=== PATIENT | female | born 1985 | race Caucasian/White ===

== ENCOUNTER 2017-07-25 15:38 | Emergency (ER) | payer OTHER ==
[2017-07-25 15:55] VITALS: TEMP 98.3
--- NOTE | 2017-07-25 16:12 | ED PDOC ---
Arrival/HPI <Kyle Stephens - Last Filed: 07/25/17 18:17> - History of Present Illness Time/Duration: Prior to Arrival Symptom Onset: Sudden Symptom Course: Unchanged Context: Home <Luiz Garcia - Last Filed: 07/25/17 18:26> - General Chief Complaint: Upper Extremity Problem/Injury Time Seen by Provider: 07/25/17 15:39 - History of Present Illness Narrative History of Present Illness (Text): 07/25/17 16:10 31yo F presenting with R shoulder pain and immobility after trying to lift a heavy mattress above her head leading to her overextending the arm above her head. pt is complaining of some tingling, but denies numbness, weakness, coldness or other complaints. (Luiz Garcia) Past Medical History - Provider Review Nursing Documentation Reviewed: Yes - Past History Past History: No Previous - Infectious Disease Hx of Infectious Diseases: None - Reproductive Menopause: No - Past Medical History Past Medical History: No Previous - Cardiac Hx Cardiac Disorders: No - Pulmonary Hx Respiratory Disorders: No - Neurological Hx Neurological Disorder: No - HEENT Hx HEENT Disorder: No - Renal Hx Renal Disorder: No - Endocrine/Metabolic Hx Endocrine Disorders: No - Hematological/Oncological Hx Blood Disorders: No - Integumentary Hx Dermatological Disorder: No - Musculoskeletal/Rheumatological Hx Musculoskeletal Disorders: No - Gastrointestinal Hx Gastrointestinal Disorders: No - Genitourinary/Gynecological Hx Genitourinary Disorders: No - Psychiatric Hx Psychophysiologic Disorder: No Hx Substance Use: No - Past Surgical History Past Surgical History: No Previous - Surgical History Hx Section: Yes - Anesthesia Hx Anesthesia Reactions: No <Luiz Garcia - Last Filed: 07/25/17 18:26> Family/Social History - Physician Review Nursing Documentation Reviewed: Yes Family/Social History: No Known Family HX Smoking Status: Unknown If Ever Smoked Hx Alcohol Use: No Hx Substance Use: No <Luiz Garcia - Last Filed: 07/25/17 18:26> Allergies/Home Meds <Kyle Stephens - Last Filed: 07/25/17 18:17> <Luiz Garcia - Last Filed: 07/25/17 18:26> Allergies/Adverse Reactions: Allergies No Known Allergies Allergy (Verified 07/25/17 15:55) Review of Systems - Physician Review All systems were reviewed & negative as marked: Yes - Review of Systems Musculoskeletal: absent: Neck Pain, Joint Swelling Neurological: Other (tingling in LUE ) <Luiz Garcia - Last Filed: 07/25/17 18:26> Physical Exam Vital Signs Reviewed: Yes Appearance: Positive for: Well-Appearing Pain Distress: None Mental Status: Positive for: Alert and Oriented X 3 - Systems Exam Head: Present: Atraumatic, Normocephalic Pupils: Present: PERRL Extroacular Muscles: Present: EOMI Mouth: Present: Moist Mucous Membranes Neck: Present: Normal Range of Motion. No: MIDLINE TENDERNESS Respiratory/Chest: Present: Clear to Auscultation, Good Air Exchange Cardiovascular: Present: Regular Rate and Rhythm, Murmurs Abdomen: No: Tenderness, Distention Back: Present: Normal Inspection Upper Extremity: Present: Normal Inspection, NORMAL PULSES, Neurovascularly Intact, Other (ROM limited by pain). No: Tenderness, Swelling, Deformity Lower Extremity: Present: Normal Inspection. No: Edema Neurological: Present: CN II-XII Intact Skin: Present: Warm, Dry Psychiatric: Present: Alert, Oriented x 3 <Luiz Garcia - Last Filed: 07/25/17 18:26> Vital Signs Temp Pulse Resp BP Pulse Ox 07/25/17 18:02 75 18 107/75 98 07/25/17 15:50 98.3 F 77 16 105/71 97 Medical Decision Making <Kyle Stephens - Last Filed: 07/25/17 18:17> Re-evaluation Time: 18:15 Reassessment Condition: Re-examined, Improved - RAD Interpretation Hadoop Architect: Radiologist <Luiz Garcia - Last Filed: 07/25/17 18:26> ED Course and Treatment: 07/25/17 18:00 Seen and examined with the resident. Our history and physical exam reveals a young woman who was lifting a mattress over her head and she hyperextended her shoulder dislocating her dominant right shoulder. X-ray shows a dislocation and also a hill sachs fracture. Patient has been nothing by mouth since 11 AM today. With informed consent and the patient on a monitor with oxygen IV and nurse present I administered moderate sedation using etomidate 20 mg Zofran 4 mg and morphine 4 mg IV. The shoulder was then reduced by myself using a traction countertraction method and the shoulder was reduced with some difficulty. Postprocedure x-ray shows the shoulder in good position. A shoulder immobilizer was applied. Patient tolerated the procedure well. (Kyle Stephens) 07/25/17 16:17 Impression: 31yo F presenting with L shoulder pain likely 2/2 sprain vs dislocation Plan: - Xray of L shoulder Progress: 07/25/17 17:54 Creator : Dieudonne Bales MD Dictator : Dieudonne Bales MD Blue Line Operator : Full Stack Java Developer : Dieudonne Bales MD Approver2 : Report Date : 07/25/2017 16:56:46 My Comment : PROCEDURE: Radiographs of the Right Shoulder HISTORY: r/o fracture/dislocation COMPARISON: No prior. FINDINGS: BONES: There is anterior dislocation of the right humeral head at the glenohumeral articulation. There is a suspect Hill-Sachs deformity of the humeral head best identified on the lateral view. There is a comminuted Bankart deformity of the glenoid. The acromioclavicular articulation is intact. The humeral neck is intact. JOINTS: As above SOFT TISSUES: Normal. OTHER FINDINGS: None. IMPRESSION: Anterior dislocation with both Hill-Sachs and Bankart deformities. 07/25/17 18:23 post-procedure reassessment: pt is resting comfortably with R arm in immobilizer. it was explained to the pt that she would keep it on until she f/u with Ortho. f/u XR shows improved reduction, as read by me (Luiz Garcia) - RAD Interpretation Radiology Orders: 07/25/17 16:02 SHOULDER RIGHT [RAD] Stat 07/25/17 17:46 SHOULDER RIGHT [RAD] Stat Procedures - Joint Reduction Joint Reduction Site: shoulder (R) Conscious Sedation: Yes Reduction Attempts: 3 Pre-Procedure NV Exam: Yes Post Joint Reduction Film: joint reduced <Luiz Garcia - Last Filed: 07/25/17 18:26> Disposition/Present on Arrival - Present on Arrival Any Indicators Present on Arrival: No History of DVT/PE: No History of Uncontrolled Diabetes: No Urinary Catheter: No History of Decub. Ulcer: No - Disposition Have Diagnosis and Disposition been Completed?: Yes Disposition Time: 18:50 Patient Plan: Discharge <Kyle Stephens - Last Filed: 07/25/17 18:17> - Present on Arrival History of DVT/PE: No History of Uncontrolled Diabetes: No Urinary Catheter: No History of Decub. Ulcer: No History Surgical Site Infection Following: None <Luiz Garcia - Last Filed: 07/25/17 18:26> - Disposition Diagnosis: Dislocation of right shoulder joint, Shoulder fracture, right Disposition: HOME/ ROUTINE Patient Problems: Current Active Problems Problem Status Onset Dislocation of right shoulder joint Acute Shoulder fracture, right Acute Condition: IMPROVED Discharge Instructions (ExitCare): Shoulder Dislocation (ED), Moderate Sedation (ED) Additional Instructions: Rest and ice. Follow-up with orthopedist. Follow-up in the ER as needed. Prescriptions: Tramadol HCl [Ultram] 50 mg PO Q6 PRN #20 tab PRN Reason: Pain Ondansetron [Zofran Odt] 4 mg SL Q6 #20 odt Referrals: Pat Blevins MD [Primary Care Provider] - Follow up with primary Lexa Whitley MD [Staff Provider] - Follow up with primary Forms: [employer] (Maltese)
--- NOTE | 2017-07-25 16:58 | RAD ---
PROCEDURE: Radiographs of the Right Shoulder HISTORY: r/o fracture/dislocation COMPARISON: No prior. FINDINGS: BONES: There is anterior dislocation of the right humeral head at the glenohumeral articulation. There is a suspect Hill-Sachs deformity of the humeral head best identified on the lateral view. There is a comminuted Bankart deformity of the glenoid. The acromioclavicular articulation is intact. The humeral neck is intact. JOINTS: As above SOFT TISSUES: Normal. OTHER FINDINGS: None. IMPRESSION: Anterior dislocation with both Hill-Sachs and Bankart deformities.
[2017-07-25] MEDS ORDERED: Etomidate 20 mg/10ml Inj IV ONE (17:16)
[2017-07-25] MEDS ORDERED: Morphine 4 mg/ml ISec ONE (17:40)
--- NOTE | 2017-07-25 18:18 | RAD ---
PROCEDURE: Radiographs of the Right Shoulder HISTORY: injury COMPARISON: Pre reduction examination. July 26, 2017. 16:43 FINDINGS: BONES: Normal. No fracture. JOINTS: Anatomic alignment of the glenoid in the humeral head now identified SOFT TISSUES: There is a component of calcific tendinosis common normal variant. OTHER FINDINGS: None. IMPRESSION: Status post reduction, anatomic alignment now identified. No fracture seen.
[2017-07-25 18:30] VITALS: O2SAT 100
[2017-07-25 19:41] VITALS: BP 116/63; PULSE 73; RESP 15
== END 2017-07-25 19:01 | disposition home or self-care (01) ==
LOC: ED 15:38
DX: S43.004A Unspecified dislocation of right shoulder joint, initial encounter (principal); S42.91XA Fracture of right shoulder girdle, part unspecified, initial encounter for closed fracture; X50.0XXA Overexertion from strenuous movement or load, initial encounter
CPT/HCPCS: 23650; 73030; 99285; J2270; J2405